=== PATIENT | female | born 1945 | race Caucasian/White ===

== ENCOUNTER 2017-04-14 13:00 | Inpatient (IN) | payer MEDICARE, BC ==
[~2017-04-14] VITALS: Ht 165.1 cm; Wt 72.6 kg
[~2017-04-14 13:00] MED LIST: ALEVE220 M3 PO; ENZYME DIGEST1 EACH PO; FISH OIL 11000 MG/CA PO; HYDROCHLOROTHIA25 M1 PO; MELATONIN5 M5 PO; PRILOSEC OTC20 M1 PO; PROBIOTIC1 EAC7 PO; TYLENOL EXTRA500 M1 PO; ULTRAM50 M1 PO
[2017-04-15 08:32] LABS: PLATELET COUNT 358 tho/cmm (150-450)
[2017-04-15 08:33] LABS: PROTHROMBIN TIME 11.9 SECONDS (9.0-13.6)
[2017-04-16 06:07] LABS: BASO % 0.4 % (0-2); EOS % 5.7 % (0-7); EOSINOPHIL ABSOLUTE COUNT 0.4 tho/cmm (0.0-0.7); HGB-HEMOGLOBIN 10.4 gm/dl (12.0-15.5); IMMATURE GRANULOCYTES ABSOLUTE 0.13 tho/cmm (0-0.03); IMMATURE GRANULOCYTES PERCENT 1.8 % (0-0.3); MCH (MEAN CORPUSCULAR HGB) 26.3 pg (28.0-32.0); MCHC MEAN CORPUSCULAR HGB CONC 33.5 % (32.0-36.0); MCV (MEAN CELL VOLUME) 78.3 fl (82.0-96.0); MEAN PLATELET VOLUME 9.8 cmc (9.4-12.4); MONO % 8.1 % (0-12); MONOCYTE ABSOLUTE COUNT 0.6 tho/cmm (0.0-1.2); NEUTROPHIL ABSOLUTE COUNT 4.2 tho/cmm (1.6-8.0); NEUTROPHIL-AUTOMATED 4.2 tho/cmm (1.6-8.0); PLATELET COUNT 299 tho/cmm (150-450); RED BLOOD COUNT 3.96 mil/cmm (4.00-5.20); RED CELL DISTRIBUTION WIDTH 14.5 % (12.4-16.4); WHITE BLOOD COUNT 7.3 tho/cmm (4.0-10.0)
[2017-04-16 06:14] LABS: ANION GAP 11 mmol/L (0-20); BLOOD UREA NITROGEN 15 mg/dl (6-24); CALCIUM 8.4 mg/dl (8.5-10.5); CARBON DIOXIDE-VENOUS 29 mmol/L (22-32); CHLORIDE 100 mmol/l (96-110); CREATININE 0.74 mg/dl (0.50-1.10); GLUCOSE 87 mg/dL (70-110); SODIUM 136 mmol/L (135-145); eGFR VALUE FOR BLACK >90 mL/Min
[2017-04-17] MEDS ORDERED: ROXICODONE5 M2 PO (13:37)
[2017-04-17] MEDS ORDERED: ASPIRIN325 M3 PO (13:39)
[2017-04-17] MEDS ORDERED: ULTRAM50 M1 PO (13:40)
== END 2017-04-17 17:05 | DRG 470 ==
LOC: CARE 04-15 07:00 → SHSB 04-15 07:22 → 5EA 04-15 07:22 → ORE 04-15 10:19 → PACU 04-15 12:58 → 5EA 04-15 13:35
PROVIDERS: Registered Nurse; ADMIT Orthopaedic Surgery
PROC: 0SRC0J9 Replacement of Right Knee Joint with Synthetic Substitute, Cemented, Open Approach (ICD-10-PCS; principal; 2017-04-15)
PROC: 3E0234Z Introduction of Serum, Toxoid and Vaccine into Muscle, Percutaneous Approach (ICD-10-PCS; 2017-04-16)
DX: M17.11 Unilateral primary osteoarthritis, right knee (principal); G62.9 Polyneuropathy, unspecified; R00.1 Bradycardia, unspecified; J45.909 Unspecified asthma, uncomplicated; B35.1 Tinea unguium; E78.5 Hyperlipidemia, unspecified; I97.89 Other postprocedural complications and disorders of the circulatory system, not elsewhere classified; M21.161 Varus deformity, not elsewhere classified, right knee; K21.9 Gastro-esophageal reflux disease without esophagitis; Z96.652 Presence of left artificial knee joint; Z88.8 Allergy status to other drugs, medicaments and biological substances; Z91.011 Allergy to milk products; Z23 Encounter for immunization
CPT/HCPCS: C1713; C1776; G0009; J0171; J0690; J1885; J2270; J2795